=== PATIENT | female | born 1985 | race Caucasian/White ===

== ENCOUNTER 2018-12-19 14:09 | Inpatient (IN) | payer MEDICAID ==
[~2018-12-19] VITALS: Ht 157.5 cm; Wt 103.7 kg
[2018-12-20] MEDS ORDERED: LIDOCAINE 1% (MPF) 30 ML INJ INJ PRN (15:30)
[2018-12-20] MEDS ORDERED: MISOPROSTOL 200 MCG TAB PR PRN (15:30)
[2018-12-20] MEDS ORDERED: OXYTOCIN 30 UNITS/LR 500 ML IV SCH ×2 (15:30)
[2018-12-20] MEDS ORDERED: CARBOPROST 250 MCG INJ IM PRN (15:30)
[2018-12-20] MEDS ORDERED: OXYTOCIN 30 UNITS/LR 500 ML IV PRN (15:30)
[2018-12-20] MEDS ORDERED: METHYLERGONOVINE 0.2 MG INJ IM PRN (15:30)
[2018-12-20] MEDS ORDERED: AMPICILLIN 2 GM/NS (PMX) 100 ML IVPB ONE (18:00)
--- NOTE | 2018-12-20 18:12 | HP ---
Date/Time of Note Date/Time of Note DATE: 12/20/18 TIME: 18:07 OB - History Hx of Present Free Text/Dictation 12/20/2018 Estimated Due Date: Dec 18, 2018 : 3 Para: 0 Care: Good Care Other Concerns: 33 years old female with IUP at 40 weeks and 2 days and late care presented with complaint of decreased movements. Antepartum course, gated by GDM A1 diet-controlled. She had a late entry to care. That was due to insurance problem. She started care on August 2018. Past Family/Social History * Past Medical, Surgical, Family and Obstetric Histories reviewed from chart. Blood Type: O+ Rubella: immune RPR/VDRL: Negative GBS Status: Positive HBsAG: Negative OB Admission Exam Physical Exam HEENT: WNL Lungs: Clear Abdomen: WNL Extremities: Normal Cervical Dilatation: 1cm Effacement: 75% Station: -2 Membranes: Intact Heart Rate: 130's Accelerations: Accelerations Present Decelerations: No Decelerations Varibility: Moderate Contractions on Admission: < 5 Minutes Apart Intensity: Moderate Last 72 hours Lab Results CBC & BMP 12/20/18 15:31 12/20/18 15:49 OB Assessment/Plan Other Assessment: IUP at 40 weeks and 2 days late entry to care GDM, A1, diet-controlled Decreased movement Discussed with patient and advised regarding induction of labor Risk and benefit of induction discussed the patient in detail as well as modes of induction Desires to proceed GBS positive Admit to labor and delivery GBS prophylaxis Consider starting Cytotec for cervical ripening Epidural as needed pain control Anticipate NATASHA KENDRICK MD Dec 20, 2018 18:12
[2018-12-20] MEDS: LACTATED RINGER'S 1,000 ML IV SCH ×2 (18:39→23:55)
[2018-12-20 18:44] VITALS: Ht 157.5 cm; Wt 103.7 kg
[2018-12-20 18:45] VITALS: BP 119/72; PULSE 65; RESP 20
[2018-12-20] MEDS ORDERED: PNV11TAB PO (18:47)
[2018-12-20] MEDS: MISOPROSTOL 50 MCG CAPSULE PO SCH ×2 (19:04→22:56)
[2018-12-20] MEDS: AMPICILLIN 1 GM/NS (PMX) 50 ML IVPB SCH (22:56)
[2018-12-21] MEDS ORDERED: FAMOTIDINE 20 MG INJ IV ONE (01:30)
[2018-12-21] MEDS: AMPICILLIN 1 GM/NS (PMX) 50 ML IVPB SCH ×5 (02:58→19:24)
[2018-12-21] MEDS: MISOPROSTOL 50 MCG CAPSULE PO SCH (03:08)
[2018-12-21] MEDS: LACTATED RINGER'S 1,000 ML IV SCH ×2 (08:57→11:12)
--- NOTE | 2018-12-21 09:24 | PREAC ---
Date/Time of Note Date/Time of Note DATE: 12/21/18 TIME: 09:23 Anesthesia Eval and Record Evaluation Time Pre-Procedure Interview DATE: 12/21/18 TIME: 09:23 Age 33 Sex female NPO: 8 hrs Preoperative diagnosis labor pain Planned procedure epidural Past Medical History Past Medical History: Includes : Gestational age: (40.3) Surgery & Anesthesia Issues No known issue Meds Anticoagulation: No Beta Jeremiah within 24 hr: No Reason Beta Jeremiah not given: Pt. not on B-Jeremiah Reported Medications [id number] ( 19) 1 Each Tablet, 1 TAB PO DAILY, TAB 12/20/18 Current Medications Lactated Ringer's 1,000 ml @ 125 mls/hr Q8H IV Last administered on 12/21/18at 08:57; Admin Dose 125 MLS/HR; Start 12/20/18 at 15:03 Lidocaine (Xylocaine 1% (Mpf)) 30 ml ONCE PRN INJ .EPISIOTOMY; Start 12/20/18 at 15:30 Oxytocin/Lactated Ringer's 500 ml @ 500 mls/hr ONCE POST IV ; Start 12/20/18 at 15:30 Oxytocin/Lactated Ringer's 500 ml @ 125 mls/hr POST IV ; Start 12/20/18 at 15:30 Oxytocin/Lactated Ringer's 500 ml @ 0 mls/hr ONCE PRN IV .VAGINAL BLEEDING; Start 12/20/18 at 15:30 Methylergonovine Maleate (Methergine) 0.2 mg ONCE PRN IM .VAGINAL BLEEDING; Start 12/20/18 at 15:30 Carboprost Tromethamine (Hemabate) 250 mcg ONCE PRN IM .VAGINAL BLEEDING; Start 12/20/18 at 15:30 Misoprostol (Cytotec) 1,000 mcg ONCE PRN IL .VAGINAL BLEEDING; Start 12/20/18 at 15:30 Misoprostol (Cytotec 50 Mcg Capsule) 50 mcg Q4 PO Last administered on 12/21/18at 03:08; Admin Dose 50 MCG; Start 12/20/18 at 18:00 Ampicillin 50 ml @ 100 mls/hr Q4 IVPB Last administered on 12/21/18at 06:34; Admin Dose 100 MLS/HR; Start 12/20/18 at 21:00 Meds reviewed: Yes Allergies Coded Allergies: No Known Drug Allergies (Verified Allergy, Unknown, 12/20/18) Allergies Reviewed: Yes Labs/Studies Labs Reviewed: Reviewed by anesthesiologist Result Diagram: 12/20/18 1549 12/20/18 1531 Laboratory Tests 12/20/18 15:31 12/20/18 15:49 Blood Bank Test 12/20/18 15:31 Antibody Screen NEGATIVE Blood Type A POSITIVE Rh Immune Globulin Candidate NO test: Positive Studies: ECG (n/a), CXR (n/a) Pre-procedure Exam Last vitals Vital Signs Date Temp Pulse Resp B/P (MAP) Pulse Ox O2 O2 Flow FiO2 Time Delivery Rate 12/20/18 98.0 65 20 119/72 98 Room Air 18:45 (88) Airway: Adequate mouth opening Mallampati: Mallampati I Teeth: Normal Lung: Normal Heart: Normal ASA Physical Status ASA physical status: 2 Emergency: None Planned Anesthetic Neuraxial: Epidural Pre-operative Attestations Prior to commencing anesthesia and surgery, the patient was re-evaluated, there was verification of: *The patient's identity *The results of appropriate recent lab work and preoperative vital signs *The above evaluation not changing prior to induction *Anesthetic plan, risk benefits, alternative and complications discussed with patient/family; questions answered; patient/family understands, accepts and wishes to proceed. SOREN GONZALEZ MD Dec 21, 2018 09:24
[2018-12-21] MEDS ORDERED: FENTAnyl 2MCG/ML-ROPIV 0.2% 100 ML ONE (09:36)
[2018-12-21] MEDS ORDERED: ONDANSETRON 4 MG INJ IV PRN ×2 (10:00→23:00)
[2018-12-21] MEDS ORDERED: DIPHENHYDRAMINE 50 MG INJ IV PRN (10:00)
[2018-12-21] MEDS ORDERED: NALOXONE (0.4 MG/ML) INJ IV PRN (10:00)
[2018-12-21] MEDS ORDERED: FENTAnyl 2MCG/ML-ROPIV 0.2% 100 ML BAG EPI SCH (10:00)
[2018-12-21] MEDS ORDERED: MINERAL OIL LIGHT 10 ML VIAL TOP ONE (14:00)
[2018-12-21] MEDS ORDERED: CEFAZOLIN 2 GM/50 ML (PMX) 50 ML IVPB STA (22:16)
[2018-12-21] MEDS ORDERED: OXYTOCIN 30 UNITS/LR 500 ML IV SCH (22:53)
--- NOTE | 2018-12-21 22:53 | LDN ---
Date/Time of Note Date/Time of Note DATE: 12/21/18 TIME: 22:51 Delivery Summary Weeks of Gestation Term gestation Placenta Delivered: Spontaneously Meconium: Thick Episiotomy: Yes Laceration repair: Medial episiotomy repaired with 2-0 Vicryl Anesthesia type: Epidural Estimated blood loss: 200 Sponge & Needle done & correct: Yes All needle counts correct: Yes Any foreign bodies felt in the: No Infant Delivery Information Sex Sex: female Apgars 1 Minute: 9 5 Minute: 9 Suctioning Nose & mouth suctioned at elvin: Yes Umbilical Cord Umbilical cord with: 3 Vessels Cord presentations: no nuchal cord Cord Blood was obtained: Yes Mother & Baby Disposition Disposition Baby's weight 8 pounds 7 ounces/ 3815 g Copies To: CC: SARAH GUTIERREZ BAHAREH MD Dec 21, 2018 22:53
[2018-12-21] MEDS ORDERED: ACETAMINOPHEN 325 MG TAB PO PRN ×2 (23:00)
[2018-12-21] MEDS ORDERED: DIBUCAINE 1% 30 GM OINT TOP PRN (23:00)
[2018-12-21] MEDS ORDERED: WITCH HAZEL/GLYCERIN PAD PR PRN (23:00)
[2018-12-21] MEDS ORDERED: METHYLERGONOVINE 0.2 MG INJ IM PRN (23:00)
[2018-12-21] MEDS ORDERED: CARBOPROST 250 MCG INJ IM PRN (23:00)
[2018-12-21] MEDS ORDERED: MAGNESIUM HYDROXIDE 30ML CUP PO PRN (23:00)
[2018-12-21] MEDS ORDERED: LANOLIN HPA 1 PKT TOP PRN (23:00)
[2018-12-21] MEDS ORDERED: BENZOCAINE 20% 56 ML SPRAY TOP PRN (23:00)
[2018-12-21] MEDS ORDERED: OXYTOCIN 30 UNITS/LR 500 ML IV PRN (23:00)
[2018-12-21] MEDS ORDERED: SENNA/DOCUSATE NA (8.6MG/50MG) TAB PO PRN (23:00)
[2018-12-21] MEDS ORDERED: MISOPROSTOL 200 MCG TAB PR PRN (23:00)
[2018-12-21 23:15] VITALS: BP 121/85; PULSE 85; RESP 20
[2018-12-22] MEDS: IBUPROFEN 600 MG TAB PO PRN ×3 (00:08→14:55)
[2018-12-22] MEDS: MISOPROSTOL 50 MCG CAPSULE PO SCH (01:41)
[2018-12-22] MEDS: LACTATED RINGER'S 1,000 ML IV SCH (01:42)
[2018-12-22] MEDS: LACTATED RINGER'S 1,000 ML IV* SCH ×2 (01:42→07:15)
--- NOTE | 2018-12-22 03:41 | PAC ---
Date/Time of Note Date/Time of Note DATE: 12/22/18 TIME: 03:41 Post-Anesthesia Notes Post-Anesthesia Note Last documented vital signs Vital Signs Date Temp Pulse Resp B/P (MAP) Pulse Ox O2 O2 Flow FiO2 Time Delivery Rate 12/21/18 97.9 85 20 121/85 98 Room Air 23:15 (97) 12/20/18 98 18:45 Activity: WNL Respiratory function: WNL Cardiovascular function: WNL Mental status: Baseline Pain reasonably controlled: Yes Hydration appropriate: Yes Nausea/Vomiting absent: No SOREN GNOZALEZ MD Dec 22, 2018 03:41
[2018-12-22 03:43] VITALS: BP 116/55; PULSE 89; RESP 20
[2018-12-22 08:00] VITALS: BP 102/57; PULSE 73; RESP 18
--- NOTE | 2018-12-22 16:04 | QN ---
Documentation Comment day #1 Status post Patient stable and afebrile Vital signs stable VS - Last 72 Hours, by Label Date Temp Pulse Resp B/P (MAP) Pulse Ox O2 O2 Flow FiO2 Time Delivery Rate 12/22/18 98.0 73 18 102/57 Room Air 08:00 (72) 12/22/18 98.3 89 20 116/55 Room Air 03:43 (75) 12/21/18 97.9 85 20 121/85 Room Air 23:15 (97) 12/20/18 98.0 65 20 119/72 98 Room Air 18:45 (88) Hematology - 72 Hrs Test 12/20/18 15:49 12/22/18 04:36 Hematocrit 40.0 % (37.0-47.0) 35.2 % (37.0-47.0) L Hemoglobin 13.4 g/dl (12.0-16.0) 11.7 g/dl (12.0-16.0) L Mean Corpuscular 30.0 pg (29.0-33.0) 30.1 pg (29.0-33.0) Hemoglobin Mean Corpuscular 33.5 g/dl (32.0-37.0) 33.2 g/dl (32.0-37.0) Hemoglobin Concent Mean Corpuscular Volume 89.5 fl (82.0-101.0) 90.5 fl (82.0-101.0) Mean Platelet Volume 10.4 fl (7.4-10.4) 10.6 fl (7.4-10.4) H Platelet Count 247 10^3/UL (140-415) 228 10^3/UL (140-415) Red Blood Count 4.47 10^6/ul (4.20-5.40) 3.89 10^6/ul (4.20-5.40) L Red Cell Distribution 13.8 % (11.5-14.5) 14.1 % (11.5-14.5) Width White Blood Count 11.8 10^3/ul (4.8-10.8) 17.7 10^3/ul (4.8-10.8) H #H Chemistry Test 12/20/18 15:31 12/20/18 23:54 7/19/19 04:08 12/21/18 07:50 Glucose Level 96 mg/dl (70-220) Bedside 120 93 91 Glucose mg/dL (70-220) mg/dL (70-220) mg/dL (70-220) Test 12/21/18 10:39 12/21/18 14:09 12/21/18 19:35 Bedside 93 89 79 Glucose mg/dL (70-220) mg/dL (70-220) mg/dL (70-220) Abdomen soft, fundus firm Perineum intact Extremities nontender Assessment and plan Patient stable and doing well Repeat CBC in a.m. Continue with routine care EVANGELISTA VELASCO MD Dec 22, 2018 16:04
[2018-12-22 16:07] VITALS: BP 124/74; PULSE 84; RESP 18
[2018-12-22 20:40] VITALS: BP 116/70; PULSE 72; RESP 20
--- NOTE | 2018-12-22 23:28 | DELSUM ---
Delivery Summary A-C Datetime Report Generated by CPN: 12/22/2018 23:28 DELIVERY PERSONNEL Wind Tunnel Mechanic: SAMRA, ALON MATERNAL INFORMATION Delivery Anesthesia: Epidural Medications in Delivery: LR WITH 30 UNITS PITOCIN, Delivery QBL (ml): 200 Placenta Cultured: No Maternal Complications: Other Other Maternal Complications: GDM LABOR SUMMARY EDC: 12/18/2018 00:00 No. Babies in Womb: 1 Attempted: No Labor Anesthesia: None LABOR INFORMATION Reason for Induction: Postterm Onset of Labor: 12/20/2018 18:30 Complete Dilatation: 12/21/2018 19:37 Cervical Ripening Agents: Cytotec @ 50G Group B Beta Strep: Positive Antibiotics # of Doses: 8 Antibiotics Time of Last Dose: 12/20/2018 19:25 Steroids Given: None Reason Steroids Not Administered: Not Applicable MEMBRANES Membranes Rupture Method: Artificial Rupture of Membranes: 12/21/2018 19:51 Length of Rupture (hr): 1.87 Amniotic Fluid Color: Light Meconium Amniotic Fluid Amount: Large Amniotic Fluid Odor: None STAGES OF LABOR Stage 1 hr: 25 Stage 1 min: 7 Stage 2 hr: 2 Stage 2 min: 6 Stage 3 hr: 0 Stage 3 min: 5 Total Time in Labor hr: 27 Total Time in Labor min: 18 VAGINAL DELIVERY Episiotomy: Median Laceration Extension: N/A Laceration Type: None Laceration Repair: Yes Initial Vag Sponge Count: 10 Final Vag Sponge Count: 10 Initial Vag Sharps Count: 1 Final Vag Sharps Count: 3 Sponge Count Correct: Yes; Vaginal Sweep Performed Sharps Count Correct: Yes BABY A INFORMATION Infant Delivery Date/Time: 12/21/2018 21:43 Method of Delivery: Vaginal Born in Route : No : N/A (Annotations: Data stored by CPN on behalf of user) Forceps: N/A Vacuum Extraction: N/A Shoulder Dystocia : N/A SHOULDER DYSTOCIA BABY A Infant Delivery Date/Time: 12/21/2018 21:43 PRESENTATION/POSITION BABY A Presentation: Cephalic Cephalic Presentation: Vertex Breech Presentation: N/A PLACENTA INFORMATION BABY A Placenta Delivery Time : 12/21/2018 21:48 Placenta Method of Delivery: Spontaneous Placenta Status: Delivered SCORES BABY A Heart Rate 1 min: >100 bpm Resp Effort 1 min: Good Cry Reflex Irritability 1 min: Cough/Sneeze/Pulls Away Muscle Tone 1 min: Active Motion Color 1 min: Body [place], Extremit Blue Resuscitation Effort 1 min: Tactile Stimulation SCORE 1 MIN: 9 Heart Rate 5 min: >100 bpm Resp Effort 5 min: Good Cry Reflex Irritability 5 min: Cough/Sneeze/Pulls Away Muscle Tone 5 min: Active Motion Color 5 min: Body [place], Extremit Blue Resuscitation Effort 5 min: Tactile Stimulation SCORE 5 MIN: 9 INFANT INFORMATION BABY A Gestational Age at Delivery: 40.2 Gestational Status: Full Term- 39- 40.6 Weeks Outcome : Liveborn, with signs of life Infant Condition : Stable Infant Sex: Female IDENTIFICATION/MEDS BABY A ID Band Number: [id number] ID Band Location: Right Leg; Left Arm Sensor Applied: Yes Sensor Number: [id number] Sensor Location : Cord Clamp Vitamin K Given : Not Given Erythromycin Given: Not Given WEIGHT/LENGTH BABY A Infant Birthweight (gm): 3815 Weight (lb): 8 Weight (oz): 7 Length (in): 20.25 Infant Length (cm): 51.44 CORD INFORMATION BABY A No. Cord Vessels: 3 Nuchal Cord : N/A Cord Blood Taken: Yes Infant Suction: Mouth; Nose ASSESSMENT BABY A Complications: Meconium Physical Findings at Delivery: Within Normal Limits Infant Respirations: Appears Normal Cable Installation Manager/ALS Called : Yes Care By: RT/RN Transferred To: Remains with Mother
[2018-12-23 04:06] VITALS: BP 104/58; PULSE 70; RESP 20
[2018-12-23] MEDS: IBUPROFEN 600 MG TAB PO PRN (04:43)
[2018-12-23 08:30] VITALS: BP 121/67; PULSE 58; RESP 18
--- NOTE | 2018-12-23 14:26 | PD.PPDC ---
DATA OPERATIONS DIRECTOR Discharge Instruction Diagnosis [id number] Final Diagnosis: Lypwh0i s/p Condition [id number] Patient Condition: [id number] Stable Diet [id number] Diet: Msnkc7o Special Diet Special Diet: ADA Activity/Restrictions [id number] Activity: Qkigq1t May Shower [id number] Restrictions: [id number] No Lifting No Sexual Activity Nothing in the Vagina No [place] No Tampons, douche Follow-up Follow-up with Physician: 2, Week/Weeks Return to clinic for [id number] SPINNING FRAME FIXER Instructions: Sceav8m Fever greater than 101 Chills Worsening abdominal pain Excessive Vaginal Bleeding More than 2 pads per hour Unable to tolerate diet [id number] OB Instructions: Yamkq0t Breast Tenderness Depression Blurried Vision Headache RUTHIE REAGAN MD Dec 23, 2018 14:26
--- NOTE | 2018-12-23 14:30 | DS ---
Date/Time of Note Date/Time of Note DATE: 12/23/18 TIME: 14:29 Obstetrical Discharge Record Final Diagnosis Final Diagnosis: Term delivered Vaginal Delivery Obstetrical Delivery: Spontaneous, Episiotomy, Repaired Complications Induction: Yes Rupture of Membranes: No Condition on Discharge Physical Assessment Last Vitals: VSS afebrile Voiding: Yes Bowel Movement: No Breast: Soft, non-tender Fundus: Firm Abdomen and Incision: n/a Episiotomy: ok c/o little soreness but getting better Calf Tenderness: No Patient Condition: Stable RUTHIE REAGAN MD Dec 23, 2018 14:30
== END 2018-12-23 16:20 | disposition home or self-care (01) | DRG 807 ==
LOC: EDSTATUS 14:41 → OBT 12-20 13:58 → L-D 12-20 13:59 → MS1 12-21 23:24
PROVIDERS: ADMIT Obstetrics & Gynecology; ATTEND Obstetrics & Gynecology
PROC: 10E0XZZ Delivery of Products of Conception, External Approach (ICD-10-PCS; principal; 2018-12-21)
PROC: 0W8NXZZ Division of Female Perineum, External Approach (ICD-10-PCS; 2018-12-21)
DX: O24.420 Gestational diabetes mellitus in childbirth, diet controlled (principal); O36.8130 Decreased fetal movements, third trimester, not applicable or unspecified; Z3A.40 40 weeks gestation of pregnancy; Z37.0 Single live birth
CPT/HCPCS: 62322; 76815; 82947; 82962; 85025; 85610; 85730; 86592; 86850; 86900; 86901; 88307; 99464; J0290; J0690; J2405; J2590; J3010; J7120